=== PATIENT | female | born 1980 | race Caucasian/White ===

== ENCOUNTER 2024-08-09 22:25 | Inpatient (IN) | payer BC, SELFPAY ==
[2024-08-09 14:35] VITALS: BP 127/89
--- NOTE | 2024-08-09 14:36 | ED.GENMED ---
ED Provider Triage
<Cisco Bain PA-C - Last Filed: 08/09/24 14:38>
-
Patient seen by provider in Triage?: Seen in Triage
Attestation: A medical screening examination has been initiated by a qualified medical provider. Based on the assessment performed at this time, it has been determined that an emergent medical condition may exist and the patient has been informed
that further medical evaluation and possible additional diagnostic testing may be needed.
HPI: 43-year-old otherwise healthy female presents with sudden onset lower abdominal pain couple hours prior to arrival followed by several episodes of vomiting. The pain is improved since its onset and now comes and goes in waves. No associated
diarrhea. No fever. Ordered labs through triage.
GENERAL: Alert , in no apparent distress
EYE: No visual abnormalities.
NECK: Trachea midline
ENT: No visible abnormalities.
LUNGS: No acute respiratory distress
NEUROLOGICAL: Alert and oriented
SKIN: Skin intact. No visible changes.
MUSCULOSKELETAL: Moving extremities normally
PSYCH: Normal and appropriate interaction.
This is a medical evaluation conducted in person to initiate diagnostic evaluation and provide initial therapeutics. Please see further documentation by the treating clinician.
History of Present Illness
<Cisco Bain PA-C - Last Filed: 08/09/24 14:38>
General
Chief Complaint: Abdominal Pain
Time Seen by Provider: 08/09/24 15:23
<Bettina Jones PA-C - Last Filed: 08/09/24 23:12>
General
Source: patient
Exam Limitations: none
History of Present Illness
History of Present Illness:
43yoF with no significant past medical history presenting for evaluation of abdominal pain. Symptoms began fairly abruptly around 11 AM this morning. She reports shooting pain across her abdomen. Pain seems to be worse in the suprapubic region.
She initially thought her pain may be related to gas so she took Gas-X which did not provide any relief. Pain is coming in waves. She also reports associated nausea and vomiting. She has vomited approximately 4 times since her symptoms began. No
prior history of similar pains in the past. She is otherwise asymptomatic and denies any fevers, chest pain, shortness of breath, dysuria, diarrhea, constipation. Last bowel movement was yesterday which was normal. Patient is supposed to receive
her menstrual period any day now. Previous abdominal surgeries include a section.
Phy Exam
<Bettina Jones PA-C - Last Filed: 08/09/24 23:12>
General Physical Exam
General Presentation: well appearing and no apparent distress
General age: appears stated age
General Skin: warm and dry
General Habitus: normal
General Mental: alert
ENT Exam
ENT Exam: normocephalic
Cardiovascular Exam
Cardiovascular Exam: regular rate/rhythm and no murmur
Pulmonary Exam
Pulmonary Exam: lungs clear, no respiratory distress, no rales, no crackles and no rhonchi
Gastrointestinal Exam
Gastrointestinal Exam: soft, non distended, no cva tenderness and other (+Suprapubic tenderness. Abdomen soft, non-distended. No rebound or guarding. No CVA tenderness. )
Neurological Exam
Neurological Exam: alert
Iris Coma Scale
Eye Opening: Spontaneous
Verbal Response: Oriented
Motor Response: Obeys Commands
GCS Total Score: 15
Skin Exam
Skin Exam: normal color and warm/dry
Psychiatric Exam
Psychiatric Exam: normal mood/affect
Course
<Cisco Bain PA-C - Last Filed: 08/09/24 14:38>
Orders/Labs/Results
Orders:
Orders
08/09/24 14:35
Test Result ONCE
08/09/24 15:01
Complete Blood Count/With Diff Urgent
Comprehensive Metabolic Panel Urgent
HCG, Serum Qualitative Screen Urgent
Lipase Urgent
08/09/24 15:07
Urinalysis Reflex To Culture Urgent
Date Specimen was Collected: 08/09/24
Time Specimen was Collected: 15:06
Urine Microscopic Reflex Cult Urgent
08/09/24 15:13
Ondansetron Orally Disint [Zofran Odt (Orally Disintegrating)] 4 mg .ROUTE .[facility]-MED ONE
08/09/24 15:14
Ondansetron Orally Disint [Zofran Odt (Orally Disintegrating)] 4 mg PO NOW STA
08/09/24 15:21
0.9% Sodium Chloride 1000 ml [Nss] 1,000 ml IV BOLUS
08/09/24 15:42
CT Abd/pel W Iv And Oral Contr Urgent
Comment:
Reason For Exam: lower abd pain
0.9% Sodium Chloride 1000 ml [Nss] 1,000 ml IV BOLUS
Iohexol [Omnipaque] See Protocol PO NOW STA
08/09/24 17:12
Ketorolac [Toradol] 15 mg IV NOW STA
08/09/24 20:10
HYDROmorphone [Dilaudid] 0.5 mg IV NOW STA
08/09/24 22:00
Admit/Transfer Patient As Directed
Co-Sign Provider:
Level of Care: Inpatient admission
Assign to:: Medical/Surgical
Physician / Group: Oskar Mullen
Diagnosis: small bowel obstruction
Reason for Hospitalization: small bowel obstruction
Expected length of stay greater than two midnights?: Yes
ELOS- Estimated Length of Stay in days: 3
I certify the patient meets the requirements for IP care: Yes
Flush (0.9% Sodium Chloride) [Flush (Nss)] See Dose Instructions IV PER PROTOCOL
08/09/24 22:01
Code Status As Directed
Resuscitation Status: Full Code
PRN Pain Medication Management As Directed
May give lesser potent ordered pain med per pt: Yes
preference::
Protocol:: Medication orders for pain may be administered in a
manner that supports deferring to patient preference
when the pt is:
- Requesting an ordered lesser potent pain medication.
Least to most potent pain medications are defined
as: acetaminophen < NSAID < tramadol < opioids
(morphine, oxycodone, hydromorphone).
- Requesting a lesser dose of the same medication IF
ORDERED.
- Requesting a less intrusive route of administration
if both routes are prescribed by the provider (PO <
IV).
Abnormal Lab Results
08/09/24 08/09/24
15:01 15:07
MCHC 32.9 L g/dL
(33.0-37.0)
Absolute Neuts (auto) 6.8 H 10^3/uL
(1.4-6.5)
Absolute Lymphs (auto) 0.9 L 10^3/uL
(1.2-3.4)
Neutrophils % 85.4 H %
(42.2-75.2)
Lymphocytes % 10.8 L %
(20.5-51.1)
Glucose 109 H mg/dl
(70-99)
Urine Ketones 1+ A
(Negative)
Ur Occult Blood Reflex 4+ A
(Negative)
Urine RBC 3-6 A /HPF
(0-2)
Urine Bacteria (Reflex) Few A
(Negative)
Urine Albumin (Reflex) 1+ A
(Neg - Trace)
08/09/24 15:01
08/09/24 15:01
Vital Signs
Initial and Last Documented VS:
Initial Vital Signs
Temp Pulse Resp BP Pulse Ox
98.6 F 91 18 127/89 100
08/09/24 14:35 08/09/24 14:35 08/09/24 14:35 08/09/24 14:35 08/09/24 14:35
Last Documented Vital Signs
Temp Pulse Resp BP Pulse Ox
98.6 F 82 20 98/57 98
08/09/24 14:35 08/09/24 22:55 08/09/24 22:55 08/09/24 22:55 08/09/24 22:55
Alejandralt;Bettina Jones PA-C - Last Filed: 08/09/24 23:12>
Orders/Labs/Results
Orders:
Orders
08/09/24 14:35
Test Result ONCE
08/09/24 15:01
Complete Blood Count/With Diff Urgent
Comprehensive Metabolic Panel Urgent
HCG, Serum Qualitative Screen Urgent
Lipase Urgent
08/09/24 15:07
Urinalysis Reflex To Culture Urgent
Date Specimen was Collected: 08/09/24
Time Specimen was Collected: 15:06
Urine Microscopic Reflex Cult Urgent
08/09/24 15:13
Ondansetron Orally Disint [Zofran Odt (Orally Disintegrating)] 4 mg .ROUTE .[facility]
08/09/24 15:14
Ondansetron Orally Disint [Zofran Odt (Orally Disintegrating)] 4 mg PO NOW STA
08/09/24 15:21
0.9% Sodium Chloride 1000 ml [Nss] 1,000 ml IV BOLUS
08/09/24 15:42
CT Abd/pel W Iv And Oral Contr Urgent
Comment:
Reason For Exam: lower abd pain
0.9% Sodium Chloride 1000 ml [Nss] 1,000 ml IV BOLUS
Iohexol [Omnipaque] See Protocol PO NOW STA
08/09/24 17:12
Ketorolac [Toradol] 15 mg IV NOW STA
08/09/24 20:10
HYDROmorphone [Dilaudid] 0.5 mg IV NOW STA
08/09/24 22:00
Admit/Transfer Patient As Directed
Co-Sign Provider:
Level of Care: Inpatient admission
Assign to:: Medical/Surgical
Physician / Group: Oskar Mullen
Diagnosis: small bowel obstruction
Reason for Hospitalization: small bowel obstruction
Expected length of stay greater than two midnights?: Yes
ELOS- Estimated Length of Stay in days: 3
I certify the patient meets the requirements for IP care: Yes
Flush (0.9% Sodium Chloride) [Flush (Nss)] See Dose Instructions IV PER PROTOCOL
08/09/24 22:01
Code Status As Directed
Resuscitation Status: Full Code
PRN Pain Medication Management As Directed
May give lesser potent ordered pain med per pt: Yes
preference::
Protocol:: Medication orders for pain may be administered in a
manner that supports deferring to patient preference
when the pt is:
- Requesting an ordered lesser potent pain medication.
Least to most potent pain medications are defined
as: acetaminophen < NSAID < tramadol < opioids
(morphine, oxycodone, hydromorphone).
- Requesting a lesser dose of the same medication IF
ORDERED.
- Requesting a less intrusive route of administration
if both routes are prescribed by the provider (PO <
IV).
Abnormal Lab Results
08/09/24 08/09/24
15:01 15:07
MCHC 32.9 L g/dL
(33.0-37.0)
Absolute Neuts (auto) 6.8 H 10^3/uL
(1.4-6.5)
Absolute Lymphs (auto) 0.9 L 10^3/uL
(1.2-3.4)
Neutrophils % 85.4 H %
(42.2-75.2)
Lymphocytes % 10.8 L %
(20.5-51.1)
Glucose 109 H mg/dl
(70-99)
Urine Ketones 1+ A
(Negative)
Ur Occult Blood Reflex 4+ A
(Negative)
Urine RBC 3-6 A /HPF
(0-2)
Urine Bacteria (Reflex) Few A
(Negative)
Urine Albumin (Reflex) 1+ A
(Neg - Trace)
08/09/24 15:01
08/09/24 15:01
Vital Signs
Initial and Last Documented VS:
Initial Vital Signs
Temp Pulse Resp BP Pulse Ox
98.6 F 91 18 127/89 100
08/09/24 14:35 08/09/24 14:35 08/09/24 14:35 08/09/24 14:35 08/09/24 14:35
Last Documented Vital Signs
Temp Pulse Resp BP Pulse Ox
98.6 F 82 20 98/57 98
08/09/24 14:35 08/09/24 22:55 08/09/24 22:55 08/09/24 22:55 08/09/24 22:55
<Bettina Jones PA-C - Last Filed: 08/09/24 23:12>
MDM/Problems Addressed
Differential Diagnosis Includes:
43yoF here with colicky abd pain and vomiting that began this afternoon. No f/c. Has not had a BM today. VSS. She is well-appearing in no acute distress. No signs of peritonitis on abdominal exam. Differential diagnosis includes but is not
limited to: Gastroenteritis, bowel obstruction, kidney stone, appendicitis, diverticulitis
Initial ED plan: Abdominal labs and UA obtained in triage. Labs unremarkable including normal white count, renal function, and LFTs. UA with 4+ blood without overt signs of infection. Will check CT abdomen with IV and p.o. contrast.
<Bettina Jones PA-C - Last Filed: 08/09/24 23:12>
*Critical Care Note
Total Time (30-74mins, 75-104mins- exclusive of procedures): Not Applicable
<Bettina Jones PA-C - Last Filed: 08/09/24 23:12>
Update Note
Update Note:
CT shows findings suspicious for a low-grade small bowel obstruction. A left renal lesion seen incidentally which could represent a complex cyst or solid mass. Further evaluation recommended with a renal ultrasound. Findings discussed with
patient. She continues to have abdominal pain but has not vomited throughout ED stay. Case discussed with general surgeon, Dr. Rodriguez, who reviewed CT scan. Patient admitted to the hospitalist service for further management.
ED Attending Note
<Cisco Bain PA-C - Last Filed: 08/09/24 14:38>
-
Portions of this chart may have been created with voice recognition software.� Occasional wrong word or��sound alike� substitutions may have occurred due to the inherent limitations of voice recognition software.
Discharge Plan
Departure
Patient Disposition: Admit
Date of Disposition: 08/09/24
Time of Disposition: 20:37
Presentation/result/management discussed w/ accepting MD/DO: Hospitalist
Discharge Problem:
Small bowel obstruction
Interventions
Interventions:
*Risk Screen - Suicide Last Done: 08/09/24 14:35
*General Assessment Last Done: 08/09/24 14:35
*Neglect/Abuse Screening Last Done: 08/09/24 14:35
*ED COVID-19 Vaccine History Last Done: 08/09/24 14:35
ZH-Fzkodu-Mzhsvuewuz Assessment Last Done: 08/09/24 15:30
[2024-08-09 15:13] LABS: Urine Albumin 1+ (Neg - Trace); Urine Bilirubin Negative (Negative); Urine Character Clear (Clear); Urine Color Yellow; Urine Glucose Negative (Negative); Urine Ketone 1+ (Negative); Urine Leukocyte Negative (Negative); Urine Nitrite Negative (Negative); Urine Occult Blood 4+ (Negative); Urine Urobilinogen Negative (Neg - 1+)
[2024-08-09] MEDS: ZOFRAN ODT (ORALLY DISINTEGRATING) 4 MG PO (15:14)
[2024-08-09 15:15] LABS: % Basophils 0.5 % (0-2); % Eosinophils 0.1 % (0-6); % Immature Granulocytes 0.1 % (0-0.5); % Lymphocytes 10.8 % (20.5-51.1); % Monocytes 3.1 % (1.7-9.3); % Neutrophils 85.4 % (42.2-75.2); Absolute Lymphocytes 0.9 10^3/uL (1.2-3.4); Absolute Monocytes 0.3 10^3/uL (0.1-0.6); Absolute Neutrophils 6.8 10^3/uL (1.4-6.5); Hematocrit 38.9 % (37.0-47.0); Hemoglobin 12.8 g/dL (12.0-16.0); Mean Corp Hgb Conc. 32.9 g/dL (33.0-37.0); Mean Corpuscular Hgb 29.8 pg (27.0-31.0); Mean Corpuscular Volume 90.7 fL (81.0-99.0); Mean Platelet Volume 9.7 fL (7.4-10.4); Nucleated Red Blood Cells % 0 %; Platelet Count 231 10^3/uL (130-400); Red Blood Cell Count 4.29 10^6/uL (4.20-5.40); Red Cell Dist. Width 13.1 % (11.5-14.5); White Blood Cell Count 7.9 10^3/uL (4.8-10.8)
[2024-08-09 15:24] LABS: HCG, Serum Qualitative Screen Negative
[2024-08-09 15:25] LABS: Urine Squamous Cell 26-30 /LPF (Few)
[2024-08-09 15:26] LABS: Urine Bacteria Few (Negative); Urine White Cell 0-2 /HPF (0-5)
[2024-08-09 15:28] LABS: ALT (SGPT) 11 U/L (0-35); AST (SGOT) 19 U/L (14-36); Albumin 4.4 g/dl (3.5-5.0); Alkaline Phosphatase 55 U/L (38-126); Blood Urea Nitrogen 16 mg/dl (7-17); Calcium 9.4 mg/dl (8.4-10.2); Carbon Dioxide 25 mmol/L (22-30); Chloride 105 mmol/L (98-107); Glucose 109 mg/dl (70-99); Lipase 59 U/L (23-300); Potassium 3.9 mmol/L (3.5-5.1); Sodium 138 mmol/L (135-145); Total Bilirubin 0.7 mg/dl (0.2-1.3); Total Protein 7.4 g/dl (6.3-8.2); eGFR > 60.00
[2024-08-09] MEDS: NSS 1000 IV (16:12)
[2024-08-09] MEDS: OMNIPAQUE 50 ML PO (16:17)
[2024-08-09] MEDS: TORADOL 15 MG IV (17:16)
[2024-08-09 18:40] VITALS: BP 102/54
[2024-08-09 18:43] VITALS: BMI 22.5
[2024-08-09] MEDS: DILAUDID 0.5 MG IV (20:22)
[2024-08-09 20:25] VITALS: BP 114/63
--- NOTE | 2024-08-09 21:25 | HPS.HSE ---
Addendum entered and electronically signed by Oskar Mullen DO 08/09/24 22:52:
Patient seen and examined independently. Agree with findings and plan as set forth by KRISTAN Piña.
Patient is a 43y F with no significant PMH who presents to ED complaining of N/V and abdominal pain that started this AM. Patient states that she had multiple episodes of non-bloody emesis at home accompanied by crampy abdominal pain. No BM
today. Perhaps small amount of flatus. Denies any prior h/o similar symptoms. Prior h/o . No other intra-abdominal surgeries. CT done in the ED today shows SBO.
Ass:
SBO
Plan:
Admit for further evaluation and treatment.
NPO, IVFs, pain control and antiemetics.
Surgery evaluation for additional recommendations.
NG decompression if persistent pain or recurrent N/V.
Follow for clinical improvement, BM, flatus, etc.
Original Note:
Family Physician
-
Family Physician: Juan Cartagena
Chief Complaint
-
abdominal pain
History of Present Illness
Patient is a 43-year-old female with no significant past medical history who presented to [facility] ED for evaluation of upper mid abdomen pain. Patient states she had abrupt onset of pain at approximately 1100 with associated vomiting
that started at 1330. Patient denies any fever, chills, cough, shortness of breath, chest pain, constipation, diarrhea or urinary symptoms.
Medical History
Past Medical History
Past Medical History: Reports None
Past Surgical History: Reports Other
Additional Past Surgical History:
(2013)
right bunionectomy
right foot scar tissue removal
Social History
Tobacco: Non-smoker
Alcohol: Occasional
Drug: None
Personal:
Living: With Family
Employment: Employed
Family History
Family History: Other (Father: melanoma; maternal aunt: brain cancer)
Allergies / Home Medications
Allergies reflects when Allergies were last updated in [facility].
Home Medications with original date entered in [facility]
Allergy/Medication List:
Allergies
Allergy/AdvReac Type Severity Reaction Status Date / Time
codeine Allergy Nausea / Verified 08/09/24 14:37
Vomiting
Home Medications
No Meds [No Current Medications] 08/09/24
Review of Systems
-
History Source: Patient
Constitutional: Reports No Symptoms
EENT: Reports No Symptoms
Respiratory: Reports No Symptoms
Cardiac: Reports No Symptoms
Abdomen/GI: Reports Abdominal Pain, Nausea and Vomiting
: Reports No Symptoms
Musculoskeletal: Reports No Symptoms
Skin: Reports No Symptoms
Neurological: Reports No Symptoms
Endocrine: Reports No Symptoms
Hematologic/Lymphatic: Reports No Symptoms
Psych: Reports No Symptoms
Physical Exam
Vital Signs
Vital Signs
Temp Pulse Resp BP Pulse Ox
98.6 F 95 18 114/63 98
08/09/24 14:35 08/09/24 20:25 08/09/24 20:25 08/09/24 20:25 08/09/24 20:25
Physical Exam
General: Well Developed, Well Nourished, No Apparent Distress, Comfortable, Conversant and Pain
HEENT: NormoCephalic, Moist mucous membranes, Atraumatic, [place] Conjunctivae, Nose Appears Normal and Ears Appear Normal
Respiratory: Clear and Non Labored Respirations
Cardiac: S1/S2 and Regular Rhythm; No Murmur, Rub or Gallop
Breast: Deferred by me
GI: Soft, Non Distended, Normal Bowel Sounds and Tender; No Organomegaly
Rectal: Deferred by Provider
Genito-urinary: Deferred by me
Musculoskeletal: No Clubbing, No Cyanosis and No Edema
Skin: Warm and IV/Catheter Site; No Rash
Neuro: Awake, Alert, AO x 3 and Nonfocal/grossly intact
Psych: Calm and Intact Judgment/Insight
Laboratory Results
-
08/09/24 15:01
08/09/24 15:
Laboratory Results
Total Bilirubin 0.7 mg/dl (0.2-1.3) 08/09/24 15:
AST 19 U/L (14-36) 08/09/24 15:
ALT 11 U/L (0-35) 08/09/24 15:
Alkaline Phosphatase 55 U/L (38-126) 08/09/24 15:
Lipase 59 U/L (23-300) 08/09/24 15:
Data Reviewed
-
CT Scan: Report Reviewed by me (Abdomen/Pelvis: Mildly dilated small bowel loops with air-fluid levels most suspicious for a low-grade small bowel obstruction. 1.5 cm left lower pole renal lesion, indeterminate by attenuation. This could represent
a complex cyst or solid mass. Initial further evaluation with a renal ultrasound is)
Lab Data: Labs Reviewed by me
Impression/Plan
-
IMPRESSION/PLAN:
#small bowel obstruction
Abd/Pelvis: Mildly dilated small bowel loops with air-fluid levels most suspicious for a low-grade small bowel obstruction.
1.5 cm left lower pole renal lesion, indeterminate by attenuation. This could represent a complex cyst or solid mass. Initial further evaluation with a renal ultrasound is suggested.
- Admit to med/surg
- NGT
- consult surgery
- IVF
- supportive care
Code status: full code
DVT prophylaxis: SCDs
[2024-08-09 22:55] VITALS: BP 98/57
[2024-08-09 23:40] VITALS: BP 102/62; BMI 21.6
[2024-08-10] VITALS (8 sets, daily range): BP systolic 95–120; BP diastolic 50–76
[2024-08-10] MEDS: ZOFRAN 4 MG IV ×2 (00:11→09:05)
[2024-08-10] MEDS: NSS 1000 IV ×2 (00:11→16:03)
[2024-08-10] MEDS: COMPAZINE 5 MG IV (04:10)
[2024-08-10 07:44] LABS: Hematocrit 37.6 % (37.0-47.0); Hemoglobin 12.9 g/dL (12.0-16.0); Mean Corp Hgb Conc. 34.3 g/dL (33.0-37.0); Mean Corpuscular Hgb 30.4 pg (27.0-31.0); Mean Corpuscular Volume 88.5 fL (81.0-99.0); Mean Platelet Volume 10.1 fL (7.4-10.4); Platelet Count 230 10^3/uL (130-400); Red Blood Cell Count 4.25 10^6/uL (4.20-5.40); Red Cell Dist. Width 13.1 % (11.5-14.5)
[2024-08-10 09:07] LABS: Blood Urea Nitrogen 16 mg/dl (7-17); Calcium 9.2 mg/dl (8.4-10.2); Carbon Dioxide 18 mmol/L (22-30); Chloride 106 mmol/L (98-107); Estimated Creatinine Clearance 107 ml/min; Glucose 109 mg/dl (70-99); Potassium 4.2 mmol/L (3.5-5.1); Sodium 137 mmol/L (135-145); eGFR > 60.00
[2024-08-10] MEDS: TORADOL 10 MG IV (09:44)
--- NOTE | 2024-08-10 09:44 | CON.GS ---
Addendum entered and electronically signed by Thaddeus Rodriguez MD 08/10/24 10:53:
Patient seen and examined with surgical [employer] this a.m. Agree with documented progress note as below.
HPI: 43-year-old female was in her baseline state of health who developed a sudden onset of abdominal pain yesterday a.m. around 11-11 30 while she was working at home. She felt like it was gas cramps but it rapidly increased in severity with a
generalized lower abdominal discomfort and pain. She subsequently had intractable nausea and vomiting. Evaluated in the emergency department with imaging concerning for possible small bowel obstruction prompting surgical consultation. She has had
improvement in her pain but still has colicky discomfort. Her nausea has subsided since NG tube placement. NG tube has bilious output. She has had a small amount of flatus but no BM.
No past medical history. Past surgical history only notable for in 2013. No past GI history.
AFVSS
NAD AAOx3 acutely ill but comfortable appearing with NG tube in place participatory for history taking
ABD: Softly distended but not tense. Tympany on percussion. Mild tenderness periumbilically. No rebound rigidity or guarding.
CT imaging reviewed. Significant gastric distention. Fluid-filled small bowel loops. Possible transition in the distal ileum around the region of the pelvis. Distal ileum subsequently decompressed. No clear evidence of closed-loop obstruction.
No evidence of significant free fluid. No bowel wall thickening. No pneumatosis.
Abdominal x-ray today reviewed. Persistent small bowel distention residual stool in the colon. No contrast visualized on today's x-rays.
Assessment/plan: 43-year-old female presenting with probable mechanical small bowel obstruction differential diagnosis also includes gastroenteritis but history/presentation seem more consistent with a SBO then viral illness/gastroenteritis.
Given bilious outputs in NG tube, x-ray imaging we discussed the indications for consideration of early operative intervention versus continued nonoperative management and reassessment for clinical improvement in obstructive symptoms with NG tube
decompression. We discussed the various risks and benefits of both approaches. After our detailed discussions patient's preference is to proceed with surgery.
Diagnostic laparoscopy, laparoscopic lysis of adhesions, possible open, possible bowel resection was reviewed in detail the patient including the anticipated operative technique, potential operative findings and their management. We discussed
benefits and potential risks of surgery such as but not limited to bleeding, infectious and wound related complications, iatrogenic injury to surrounding viscera. We discussed typical postoperative recovery and hospital care which could be highly
variable depending on operative findings (simple laparoscopic lysis versus laparotomy and small bowel resection). Any of the patient's concerns or questions were confirmed to be fully addressed and informed consent was obtained.
Patient is on the OR schedule today for DX lap, lysis, possible bowel resection, possible open
Continue NG tube awaiting OR availability
Continue current supportive care
Original Note:
Consultation
-
Date/Time Consultation Requested: 08/09/24 4022
Requesting Provider: Linette
Performing Provider: Dimitri Rodriguez
Reason for Consultation: SBO
Medical History
-
Chief Complaint: Abdominal pain, vomiting
History of Present Illness:
Ms Lundberg is a 43 yo female with a h/o in 2013 who presents with sudden onset of abdominal pain yesterday around 1130am with cramping. She initially tried taking GasX without relief in symptoms. Around 1:30pm yesterday she began vomiting as
well with worsening pain. She called her PCP and was advised to present to the ED for evaluation. Overnight an NGT was placed after she vomited back up PO contrast after her CT scan with noted improvement in symptoms. Bilious outputs are noted. She
does have some residual tenderness predominantly to the RLQ but she notes this is much better than previous. Some bloating/distention persists as well with tympany present on exam. She notes that overnight, she has been able to pass flatus twice.
Past Medical History
Past Medical History: None
Past Surgical History: and Orthopedic (right bunionectomy)
Social History
Tobacco: Non-Smoker
Alcohol: Occasional
Drug: None
Personal:
Living: With Family
Family History
Family History: Reviewed & Not Pertinent
Allergies / Home Medications
Allergy/AdvReac Type Severity Reaction Status Date / Time
codeine Allergy Nausea / Verified 08/09/24 14:37
Vomiting
�Medication �Instructions �Recorded �Confirmed �Type
No Meds [No Current Medications] 08/09/24 08/09/24 History
Review of Systems
-
History Source: Patient
All other systems: Negative unless noted
A 10 point review of systems was completed, and was negative except as per HPI.
Physical Exam
Vital Signs
Temp Pulse Resp BP Pulse Ox
98.3 F 73 20 104/66 97
08/10/24 07:25 08/10/24 07:25 08/10/24 07:25 08/10/24 07:25 08/10/24 07:25
08/09/24 08/10/24 08/11/24
06:59 06:59 06:59
Actual Weight 66.423 kg
Body Mass Index (BMI) 21.6
Lab Results
08/10/24 06:43
08/10/24 06:43
WBC 10.0 10^3/uL (4.8-10.8) 08/10/24 06:43
Hgb 12.9 g/dL (12.0-16.0) 08/10/24 06:43
Hct 37.6 % (37.0-47.0) 08/10/24 06:43
Plt Count 230 10^3/uL (130-400) 08/10/24 06:43
Abs Immat Gran (auto) 0.0 10^3/uL (0-0.05) 08/09/24 15:01
Neutrophils % 85.4 % (42.2-75.2) H 08/09/24 15:01
Physical Exam
General: Well Developed and Well Nourished
HEENT: Moist Mucous Membranes
GI: Soft, Tender (mild to lower abdomen r>l) and Distended (mild to mod with tympany)
Skin: Warm and Dry
Neuro: Awake, Alert and AO x 3
Psych: Calm
Assessment / Plan
-
43 yo female with h/o presenting with acute onset of abdominal pain/cramping followed by n/v yesterday. CT imaging reviewed with dilated stomach and small bowel consistent with partial SBO suspect secondary to adhesions from prior surgery.
No leukocytosis. Afebrile with stable vital signs. NGT in place with bilious outputs.
--Check XR abd to evaluate NGT placement re-eval of distention/contrast
--Continue NPO with NGT in place to LIWS
--IVF while NPO
--Antiemetics/analgesics
--May require operative intervention for dx lap with JESSIE
--- NOTE | 2024-08-10 12:07 | W.SUR.PREOP ---
Pre-Operative Surgical Note
-
I have examined this patient prior to the performance of the scheduled procedure.
The patient's condition is unchanged from the time of the current History and
Physical and the patient is able to undergo the scheduled procedure.
--- NOTE | 2024-08-10 12:48 | W.PN.HOSP.TC ---
Addendum entered and electronically signed by Luis E Walker MD 08/10/24 14:23:
Patient is now on general surgery team. Medicine will sign off. Please call us if any questions.
Original Note:
Today's Communication/Plan
-
Monitor vitals
See plan
Seen by surgery, plan for OR today
Maintain NG tube
Pain control, discussed with RN
IVF
Assessment / Plan
Assessment / Plan
General: Well Developed, Well Nourished, No Apparent Distress, Comfortable, Conversant and Pain
HEENT: NormoCephalic, Moist mucous membranes, Atraumatic, [place] Conjunctivae
Respiratory: Clear and Non Labored Respirations
Cardiac: S1/S2 and Regular Rhythm
GI: Soft, Non Distended and Tender, +NGT
Musculoskeletal: No Edema
Neuro: Awake, Alert, AO x 3 and Nonfocal/grossly intact
Psych: Calm and Intact Judgment/Insight
small bowel obstruction
Abd/Pelvis: Mildly dilated small bowel loops with air-fluid levels most suspicious for a low-grade small bowel obstruction.
1.5 cm left lower pole renal lesion, indeterminate by attenuation. This could represent a complex cyst or solid mass. Initial further evaluation with a renal ultrasound is suggested.
- NGT
Surgery following, plan for OR today
- IVF
- supportive care, pain control
History of
DVTppx
SCD's
Full code
Anticipated Discharge: > 48 hours
Subjective/Interval History
-
Date of Service: August 10, 2024
has pain
Objective Data
-
Labs:
Laboratory Results
08/10/24
06:43
WBC 10.0
Hgb 12.9
Hct 37.6
Plt Count 230
Sodium 137
Potassium 4.2
Chloride 106
Carbon Dioxide 18 L
BUN 16
Creatinine 0.7
Glucose 109 H
Calcium 9.2
Vital Signs:
Vital Signs
Temp Pulse Resp BP Pulse Ox
98.3 F 73 20 104/66 97
08/10/24 07:25 08/10/24 07:25 08/10/24 07:25 08/10/24 07:25 08/10/24 07:25
I&O
08/09/24 08/10/24 08/11/24
06:59 06:59 06:59
Output Total 300 / 300
Balance -300 / -300
--- NOTE | 2024-08-10 13:17 | W.IMMPOSTOP ---
Addendum entered and electronically signed by Thaddeus Rodriguez MD 08/10/24 13:30:
#[id number]
Original Note:
Surgical Immed Post Op Note
-
Primary Surgeon: Thaddeus Rodriguez MD
Assisting Surgeon: Louisa LLANES
JUANA Arellano
Pre-op Diagnosis: Small bowel obstruction
Post-op Diagnosis: Small bowel obstruction
Procedure Performed: Laparoscopic lysis of adhesions/reduction of small bowel with closure of sigmoid colon mesenteric defect
Anesthesia Type: GETA +0.25% Marcaine
Specimen / Cultures: None
Estimated Blood Loss: 4 mL
Complications: None immediate
Operative Findings: Three 5 mm trocar sites placed. Veress needle insufflation uneventfully. High-grade obstruction present in the pelvis from distal ileum herniating through mesenteric window/defect in the sigmoid colon mesentery between the left
colic branch of the KORIN and the superior hemorrhoidal artery branch. Mildly edematous bowel from obstruction. No strictures. Mesenteric defect sutured closed with 3-O V-lock 180. No additional adhesions noted. No additional incidental hernias
intra-abdominal findings.
Updated patient's mother in the waiting area
Plan: Clear liquid diet immediately postop. NG tube removed. Routine postoperative care awaiting return of postoperative GI function.
--- NOTE | 2024-08-10 15:55 | CM ---
community case manager reviewed patient's chart and met with patient and patient lives with spouse and son in a 2 story home, patient is independent with adl's and ambulation, no dme, patient drives, home when stable no needs.
Pharmacy [facility] in [place]
Plan; Home when stable.
[2024-08-11 03:33] VITALS: BP 98/66
[2024-08-11] MEDS: NSS 1000 IV (04:24)
[2024-08-11 07:55] VITALS: BP 96/63
--- NOTE | 2024-08-11 09:26 | W.PN.GS2 ---
Addendum entered and electronically signed by Thaddeus Rodriguez MD 08/11/24 15:19:
Patient seen and examined in follow-up this afternoon with surgical STUDENT RECORDS COORDINATOR.
Agree with documented progress note.
Presenting symptoms resolved. Tolerating p.o. intake and dietary advancement. Passing stools.
AFVSS
ABD: Soft, nondistended, nontender, surgical site with glue dressings
A/P: POD #1 status post lap JESSIE, reduction of small bowel with closure of sigmoid mesenteric defect
DC home
Original Note:
Today's Communication / Plan
-
Advance diet
Assessment / Plan
-
43 yo female presenting with SBO secondary to adhesions now POD #1 lap JESSIE/reduction of small bowel with closure of sigmoid colon mesenteric defect
AFVSS
Doing well post operatively with evidence of good bowel recovery thus far
--Advance to LRD
--Analgesics prn
--D/C IVF
--Ambulating well, SCDs while in bed for VTE ppx
Anticipate d/c within the next 24hours pending dietary tolerance
Subjective Data
-
Date of Service: August 11, 2024
Patient seen and examined at bedside. Denies n/v. Doing well with clear liquids. Passing stool and flatus. minimal discomfort to the right abdomen and some bloating. sore throat. menses started this am
Objective Data
-
Intake and Output
08/10/24 08/11/24 08/12/24
06:59 06:59 06:59
Intake Total 1970 / 1969
Output Total 300 / 300
Balance 1670 / 1670
Intake:
Oral fluids 960 / 960
IV fluids (Total) 1010 / 1010
normosol 50 / 50
Output:
Drain Output (Total) 300 / 300
Right Sump 300 / 300
Other:
Number of approximated MODERATE 2
amounts of urine
Vital Signs
Temp Pulse Resp BP Pulse Ox
98.3 F 86 18 96/63 98
08/11/24 07:55 08/11/24 07:55 08/11/24 07:55 08/11/24 07:55 08/11/24 07:55
Lab Results
08/10/24 06:43
08/10/24 06:43
Calcium 9.2 mg/dl (8.4-10.2) 08/10/24 06:43
Total Bilirubin 0.7 mg/dl (0.2-1.3) 08/09/24 15:01
AST 19 U/L (14-36) 08/09/24 15:01
ALT 11 U/L (0-35) 08/09/24 15:01
Alkaline Phosphatase 55 U/L (38-126) 08/09/24 15:01
Total Protein 7.4 g/dl (6.3-8.2) 08/09/24 15:01
Albumin 4.4 g/dl (3.5-5.0) 08/09/24 15:01
Physical Exam
-
NAD
ABD soft, ND, minimal incisional tenderness
Incisions well approximated with intact glue
[2024-08-11] MEDS: ANESTHETIC LOZENGE 1 LOZENGE PO (10:54)
--- NOTE | 2024-08-11 11:17 | CM ---
Chart reviewed and plan is to home no needswhen stable.
Plan; Home no needs.
--- NOTE | 2024-08-11 15:06 | W.DCSUMMARY ---
Documented by User: Sandy HanksmanKRISTAN 08/11/24 15:10
Discharge Summary
Discharge Data
Date of Admission: 08/09/24
Date of Discharge: 08/11/24
-
Pending Results: No
Hospital Course
Ms Lundberg presented through the ED with sudden onset of abdominal pain followed by nausea and vomiting several hours later which persisted causing her to present through the ED. CT imaging was consistent with a small bowel obstruction and she was
taken to the OR for diagnostic laparoscopy with lysis of adhesions with sigmoid colon mesenteric defect noted containing entrapped bowel noted intraop which was reduced and closed. She had good bowel recovery post operatively and diet was able to be
advanced and well tolerated. Pain was minimal after procedure. She was discharged to home with outpatient follow up planned in the coming weeks.
Discharge Plan
-
Patient Disposition: Home (Routine Discharge)
Discharge Diagnosis/Procedures: Small bowel obstruction. Laparoscopic lysis of adhesions, closure sigmoid colon mesenteric window.
Condition: Good
Diet: As tolerated and Low Fiber
Additional Diets: No fibrous foods and smaller portions initially after surgery for 1 to 2 weeks until any postoperative distention and bloating subsides. Subsequently resume her regular diet as tolerated.
Activity: No strenuous activity
Additional Activity: Avoid lifting over 15 to 20 pounds for 1 to 2 weeks postoperatively. Routine daily activities are all okay as tolerated.
Driving Restrictions: No driving for 24 hours postop ORIF utilizing narc
Bathing Restrictions: OK to Shower
Wound Care: Glue at surgical sites typically peels off in 2 to 3 weeks
Referrals:
Juan Cartagena, [Non-Admitting Privileges] -
Thaddeus Rodriguez MD [Active] - in two to four weeks
Prescriptions:
New
acetaminophen 325 mg tablet
650 mg PO Q4HPRN PRN (Reason: mild pain) Qty: 1 0RF
ibuprofen 200 mg tablet
400 - 600 mg PO Q6HPRN PRN (Reason: moderate pain) Qty: 1 0RF
oxycodone 5 mg tablet
5 mg PO Q4HPRN PRN (Reason: breakthrough/severe pain) Qty: 10 0RF
Discharge Orders:
Discharge Patient (As Directed); Ordered 08/11/24
Ordered By: Sandy Mosley
Discharge Date and Time
Print Language: MACANESE

Documented by User: Thaddeus Rodriguez MD 08/11/24 15:19
Discharge Summary
Discharge Data
Date of Admission: 08/09/24
Date of Discharge: 08/11/24
Discharge Plan
-
Patient Disposition: Home (Routine Discharge)
Discharge Diagnosis/Procedures: Small bowel obstruction. Laparoscopic lysis of adhesions, closure sigmoid colon mesenteric window.
Condition: Good
Diet: As tolerated and Low Fiber
Additional Diets: No fibrous foods and smaller portions initially after surgery for 1 to 2 weeks until any postoperative distention and bloating subsides. Subsequently resume her regular diet as tolerated.
Activity: No strenuous activity
Additional Activity: Avoid lifting over 15 to 20 pounds for 1 to 2 weeks postoperatively. Routine daily activities are all okay as tolerated.
Driving Restrictions: No driving for 24 hours postop ORIF utilizing narc
Bathing Restrictions: OK to Shower
Wound Care: Glue at surgical sites typically peels off in 2 to 3 weeks
Referrals:
Juan Cartagena, DO [Non-Admitting Privileges] -
Thaddeus Rodriguez MD [Active] - in two to four weeks
Prescriptions:
New
acetaminophen 325 mg tablet
650 mg PO Q4HPRN PRN (Reason: mild pain) Qty: 1 0RF
ibuprofen 200 mg tablet
400 - 600 mg PO Q6HPRN PRN (Reason: moderate pain) Qty: 1 0RF
oxycodone 5 mg tablet
5 mg PO Q4HPRN PRN (Reason: breakthrough/severe pain) Qty: 10 0RF
Discharge Orders:
Discharge Patient (As Directed); Ordered 08/11/24
Ordered By: Sandy Mosley
Discharge Date and Time
Print Language: MACANESE
[2024-08-11 15:46] VITALS: BP 101/55
== END 2024-08-11 17:30 | disposition home or self-care (01) | DRG 336 ==
LOC: 4 WEST ACU 22:25
PROVIDERS: Nurse Practitioner Family; Physician Assistant; ADMITTING PHYSICIAN Hospitalist; ATTENDING PHYSICIAN Surgery; EMERGENCY PHYSICIAN Emergency Medicine
PROC: 0DN84ZZ Release Small Intestine, Percutaneous Endoscopic Approach (ICD-10-PCS; 2024-08-10)
PROC: 0DQV4ZZ Repair Mesentery, Percutaneous Endoscopic Approach (ICD-10-PCS; 2024-08-10)
PROC: 0DNB4ZZ Release Ileum, Percutaneous Endoscopic Approach (ICD-10-PCS; 2024-08-10)
DX: K56.51 Intestinal adhesions [bands], with partial obstruction (principal); K45.0 Other specified abdominal hernia with obstruction, without gangrene
CPT/HCPCS: 74018; 74177; 80048; 80053; 81003; 81015; 83690; 84703; 85025; 85027; 96361; 96374; 96375; 99284; C1776; Q9967